=== PATIENT | male | born 1955 | race Caucasian/White ===

== ENCOUNTER 2018-03-05 10:07 | Outpatient (CLI) | payer MEDICARE ==
[~2018-03-05] VITALS: Ht 175.3 cm; Wt 104.8 kg
[2018-03-05 10:14] VITALS: BP 150/70
[2018-03-05 10:54] LABS: BASOPHILS % (AUTO) 0 % (0-10); EOSINOPHILS # (AUTO) 0.1 10^3/uL (0.0-0.3); EOSINOPHILS % (AUTO) 1 % (0-10); HEMATOCRIT 45 % (40-54); HEMOGLOBIN 15.2 G/DL (13.3-17.7); LYMPHOCYTES % (AUTO) 34 % (12-44); MEAN CORPUSCULAR HEMOGLOBIN 30 PG (25-34); MEAN CORPUSCULAR HGB CONC 34 G/DL (32-36); MEAN CORPUSCULAR VOLUME 88 FL (80-99); MEAN PLATELET VOLUME 11.1 FL (7.4-10.4); MONOCYTES # (AUTO) 0.9 X 10^3 (0.0-1.0); MONOCYTES % (AUTO) 8 % (0-12); NEUTROPHILS # (AUTO) 6.8 X 10^3 (1.8-7.8); NEUTROPHILS % (AUTO) 57 % (42-75); PLATELET COUNT 217 10^3/uL (130-400); RED BLOOD COUNT 5.07 10^6/uL (4.35-5.85); RED CELL DISTRIBUTION WIDTH 14.8 % (10.0-14.5); WHITE BLOOD COUNT 11.8 10^3/uL (4.3-11.0)
[2018-03-05 10:58] LABS: BILIRUBIN,URINE NEGATIVE (NEGATIVE); CLARITY,URINE CLEAR; COLOR,URINE YELLOW; GLUCOSE, URINE (UA) NEGATIVE (NEGATIVE); KETONES,URINE NEGATIVE (NEGATIVE); LEUKOCYTE ESTERASE ,URINE NEGATIVE (NEGATIVE); NITRITE,URINE NEGATIVE (NEGATIVE); PH,URINE 5 (5-9); PROTEIN,URINE NEGATIVE (NEGATIVE); UROBILINOGEN,URINE NORMAL (NORMAL)
[2018-03-05 11:13] LABS: BACTERIA,URINE NEGATIVE /HPF; SQUAMOUS EPITHELIAL CELL,UR RARE /HPF
[2018-03-05 11:20] LABS: BUN/CREATININE RATIO 14; CALCIUM 9.1 MG/DL (8.5-10.1); CARBON DIOXIDE 25 MMOL/L (21-32); CHLORIDE 108 MMOL/L (98-107); CREATININE SERUM 0.97 MG/DL (0.60-1.30); GFR ESTIMATED > 60; GLUCOSE 86 MG/DL (70-105); POTASSIUM 3.9 MMOL/L (3.6-5.0); SODIUM 140 MMOL/L (135-145)
[2018-03-05] MEDS ORDERED: TRAM50TA2 PO (11:20)
[2018-03-05] MEDS ORDERED: MONT10TA21 PO (11:20)
[2018-03-05] MEDS ORDERED: METO-352 PO (11:20)
[2018-03-05] MEDS ORDERED: PRAV20TA3 PO (11:20)
[2018-03-05] MEDS ORDERED: BACL20TA PO (11:20)
[2018-03-05] MEDS ORDERED: VENL75CA PO (11:20)
[2018-03-05] MEDS ORDERED: PANT40TA3 PO (11:20)
[2018-03-05 11:24] LABS: PROTHROMBIN TIME PATIENT 13.5 SEC (12.2-14.7)
--- NOTE | 2018-03-05 11:39 | Diagnostic Imaging Report ---
PATIENT HISTORY: Preoperative evaluation of cardiac and pulmonary structures prior to administration of anesthesia. Right total knee arthroplasty. TECHNIQUE: Two views of the chest. COMPARISON: None. FINDINGS: Lung volumes are normal. There is mild opacity at the left midlung, may represent atelectasis or prominent epicardial fat pad. No pleural effusion or pneumothorax is seen. The cardiac silhouette is normal in size. No acute osseous abnormality seen. IMPRESSION: No definite acute pulmonary abnormality is seen. Opacity at the left midlung is thought to represent atelectasis or prominent epicardial fat pad. Dictated by: Dictated on workstation # [id number]
== END 2018-03-05 11:00 | disposition home or self-care (01) ==
LOC: PREOP 10:07
PROVIDERS: ATTEND Orthopaedic Surgery
DX: Z01.810 Encounter for preprocedural cardiovascular examination (principal); Z01.811 Encounter for preprocedural respiratory examination; Z01.812 Encounter for preprocedural laboratory examination; Z11.2 Encounter for screening for other bacterial diseases; M17.0 Bilateral primary osteoarthritis of knee; I10 Essential (primary) hypertension; R53.83 Other fatigue
CPT/HCPCS: 36415; 71046; 80048; 81000; 85025; 85610; 86850; 86900; 86901; 87081; 93005

== ENCOUNTER 2018-03-18 06:00 | Inpatient (IN) | payer MEDICARE ==
[~2018-03-18] VITALS: Ht 175.3 cm; Wt 104.8 kg
[~2018-03-18 06:00] MED LIST: BACL20TA PO; METO-352 PO; MONT10TA21 PO; PANT40TA3 PO; PRAV20TA3 PO; TRAM50TA2 PO; VENL75CA PO
[2018-03-18] MEDS ORDERED: ONDANSETRON 4 MG/2 ML (SDV) Z0FRAN IVP ONE (06:30)
[2018-03-18] MEDS ORDERED: CELECOXIB 100 MG (CeleBREX) CAP PO ONE (06:30)
[2018-03-18] MEDS ORDERED: ceFAZolin 2 GM IV Premixed 50 ML IV ONE (06:30)
[2018-03-18] MEDS ORDERED: DEXAMETHASONE 4 MG/ML SDV (DECADRON) IV ONE (06:30)
[2018-03-18] MEDS ORDERED: GABAPENTIN 600 MG (NEURONTIN) TAB PO ONE (06:30)
[2018-03-18] MEDS ORDERED: fentaNYL INJECTION 100 MCG/2 ML AMP ONE (06:38)
[2018-03-18] MEDS ORDERED: MIDAZOLAM 2 MG/2 ML (VERSED) VIAL ONE ×2 (06:38→06:52)
[2018-03-18] MEDS ORDERED: GENTAMICIN 40 MG/ML 2 ML INJ SDV ONE (06:42)
[2018-03-18] MEDS ORDERED: NS IV 500 ML 500 ML IV PRN (06:56)
--- NOTE | 2018-03-18 07:52 | Progress Note-Pre Operative ---
Pre-Operative Progress Note H&P Reviewed The H&P was reviewed, patient examined and no changes noted. Date Seen by Provider: March 18, 2018 Time Seen by Provider: 07:45 Date H&P Reviewed: March 18, 2018 Time H&P Reviewed: 07:45 Pre-Operative Diagnosis: Primary Osteoarthritis Right Knee ZACHARY ORTIZ DO March 18, 2018 7:52 am
[2018-03-18] MEDS: LACTATED RINGERS 1,000 ML IV PRN ×2 (07:57→08:21)
[2018-03-18] MEDS ORDERED: KETOROLAC 30 MG/ML VIAL IVP PRN (08:00)
[2018-03-18] MEDS ORDERED: PROMETHAZINE INJ 25 MG/ML (PHENERGAN) AMP IVP PRN (08:00)
[2018-03-18] MEDS ORDERED: BACLOFEN 10 MG (LIORESAL) TAB PO PRN ×2 (08:00→13:00)
[2018-03-18] MEDS ORDERED: BISACODYL 10 MG SUPP (DULCOLAX) PR PRN (08:00)
[2018-03-18] MEDS ORDERED: morphine INJ 10 MG/ML 1ML (SYR OR VIAL) IVP PRN (08:00)
[2018-03-18] MEDS ORDERED: ONDANSETRON 4 MG/2 ML (SDV) Z0FRAN IVP PRN ×2 (08:00→10:15)
[2018-03-18] MEDS ORDERED: diphenhydrAMINE 50 MG/ML INJ (BENADRYL) IV PRN (08:00)
[2018-03-18 08:20] VITALS: BP 135/72
[2018-03-18] MEDS ORDERED: LIDOCAINE PF 2% 5 ML (XYLOCAINE) VIAL ONE (08:23)
[2018-03-18] MEDS ORDERED: ROPIVACAINE 5MG/ML 30ML VIAL ONE (08:23)
[2018-03-18] MEDS ORDERED: proPOfol 200 MG/20 ML (DIPRIVAN) VIAL IV ONE (08:23)
[2018-03-18] MEDS ORDERED: ONDANSETRON 4 MG/2 ML (SDV) Z0FRAN ONE (08:23)
[2018-03-18] MEDS ORDERED: DEXAMETHASONE 10 MG/ML (DECADRON) 1 ML VIAL ONE (08:23)
[2018-03-18] MEDS ORDERED: SEVOFLURANE (ULTANE) 15 ML INHAL SOLN ONE (08:23)
[2018-03-18] MEDS ORDERED: NEOSTIGMINE 1 MG/ML 5 ML SYRINGE ONE (08:23)
[2018-03-18] MEDS ORDERED: ROCURONIUM 10 MG/ML 5 ML SYRINGE IV ONE (08:24)
[2018-03-18] MEDS ORDERED: GLYCOPYRROLATE 0.2 MG/ML (ROBINUL) 2 ML VIAL ONE (08:25)
[2018-03-18] MEDS ORDERED: TRANEXAMIC ACID 100 MG/ML 10 ML INJECTION IV ONE (08:26)
[2018-03-18] MEDS ORDERED: NEO/POLY/BAC (NEOSPORIN) OINT 15 GM TUBE ONE (08:44)
[2018-03-18] MEDS: ASPIRIN E.C. 325 MG (ECOTRIN) TABLET PO SCH (09:00)
[2018-03-18] MEDS: BISACODYL 5 MG (DULCOLAX) TABLET PO SCH (09:00)
[2018-03-18] MEDS ORDERED: INTRA-ARTICULAR IU ONE ×4 (09:00)
--- NOTE | 2018-03-18 09:56 | Progress Note-Post Operative ---
Post-Operative Progess Note Surgeon (s)/Nuclear Operations Specialist (s) Surgeon ZACHARY ORTIZ DO Nuclear Operations Specialist: Trevor Duckworth OYSTER PREPARERTonya Pre-Operative Diagnosis Primary Osteoarthritis Right Knee Post-Operative Diagnosis same Procedure & Operative Findings Date of Procedure 03/18/18 Procedure Performed/Findings Right Total Knee Arthroplasty Anesthesia Type General with femoral and Ipacs nerve block Estimated Blood Loss Estimated blood loss (mL): 100 ml Specimens/Packing Specimens Removed arthritic bone and meniscal tissue ZACHARY ORTIZ DO March 18, 2018 9:56 am
[2018-03-18] MEDS ORDERED: HYDROmorphone 1 MG/ML (DILAUDID) 1 ML SYRINGE IV PRN (10:15)
[2018-03-18] MEDS ORDERED: morphine INJ 10 MG/ML 1ML (SYR OR VIAL) ONE (10:30)
[2018-03-18] MEDS: morphine INJ 10 MG/ML 1ML (SYR OR VIAL) IVP PRN ×2 (10:35→10:40)
--- NOTE | 2018-03-18 11:02 | Diagnostic Imaging Report ---
INDICATION: Postop right knee arthroplasty COMPARISON: None. FINDINGS: 2 views of the right knee demonstrate well-suited arthroplasty without fracture or dislocation. Skin clips are present. There is no unexpected postoperative foreign body. IMPRESSION: Well-seated right knee arthroplasty. Dictated by: Dictated on workstation # [id number]
[2018-03-18] MEDS: D5 1/2 NS 1000 ML IV SOLUTION 1,000 ML IV SCH (11:35)
[2018-03-18 12:00] VITALS: BP 129/66
[2018-03-18] MEDS ORDERED: ceFAZolin 2 GM IV Premixed 50 ML IV SCH (13:00)
[2018-03-18] MEDS ORDERED: PRAV40TA2 PO (14:32)
[2018-03-18 15:50] VITALS: BP 121/66
[2018-03-18] MEDS: ceFAZolin 2 GM IV Premixed 50 ML IV SCH (15:54)
[2018-03-18] MEDS: NICOTINE 21 MG (NICODERM) PATCH TD SCH (16:19)
[2018-03-18] MEDS: HYDROcodone/APAP 10 MG/325 MG (LORTAB) TAB PO PRN (17:05)
[2018-03-18 20:00] VITALS: BP 126/62
[2018-03-18] MEDS ORDERED: meTOprolol TARTRATE 50 MG (LOPRESSOR) TAB ONE (20:33)
[2018-03-18] MEDS ORDERED: meTOproloL SUCCINATE 50 MG (TOPROL XL) TAB PO ONE (21:17)
[2018-03-18] MEDS: VENlafaxine XR 75 MG (EFFEXOR XR) CAP PO SCH (21:24)
[2018-03-18] MEDS: PANTOPRAZOLE 40 MG (PROTONIX) TAB PO SCH (21:24)
[2018-03-18] MEDS: MONTELUKAST 10 MG (SINGULAIR) TAB PO SCH (21:24)
[2018-03-19] VITALS: BP 102/56
[2018-03-19] MEDS: ceFAZolin 2 GM IV Premixed 50 ML IV SCH (00:26)
[2018-03-19] MEDS: D5 1/2 NS 1000 ML IV SOLUTION 1,000 ML IV SCH (00:26)
[2018-03-19 04:00] VITALS: BP 130/87
[2018-03-19] MEDS: HYDROcodone/APAP 10 MG/325 MG (LORTAB) TAB PO PRN ×5 (04:13→23:51)
[2018-03-19 05:09] LABS: MEAN PLATELET VOLUME 11.3 FL (7.4-10.4); RED BLOOD COUNT 4.38 10^6/uL (4.35-5.85); RED CELL DISTRIBUTION WIDTH 14.6 % (10.0-14.5); WHITE BLOOD COUNT 17.7 10^3/uL (4.3-11.0)
[2018-03-19 05:32] LABS: BUN/CREATININE RATIO 13; CALCIUM 8.7 MG/DL (8.5-10.1); CARBON DIOXIDE 19 MMOL/L (21-32); CHLORIDE 106 MMOL/L (98-107); CREATININE SERUM 0.97 MG/DL (0.60-1.30); GFR ESTIMATED > 60; GLUCOSE 197 MG/DL (70-105); SODIUM 138 MMOL/L (135-145)
--- NOTE | 2018-03-19 07:11 | OPERATIVE REPORT ---
DATE OF SERVICE: 03/18/2018 PREOPERATIVE DIAGNOSIS: Primary osteoarthritis, right knee with varus deformity. POSTOPERATIVE DIAGNOSIS: Primary osteoarthritis, right knee with varus deformity. PROCEDURE: Right total knee arthroplasty. SURGEON: Zachary Ortiz DO LEARNING DISABILITIES SPECIALIST: CHET Huertas SURGICAL OFFICE SERVICES CLERK DUTIES: Trevor Duckworth, surgical technician was utilized throughout the entire procedure for retraction, placement of metallic implants, wound closure, dressing application and patient transfer. ANESTHESIA: General with femoral and IPACK nerve block. COMPLICATIONS: None. ESTIMATED BLOOD LOSS: 100 mL. INDICATIONS AND FINDINGS: The patient is a 63-year-old male seen with chief complaint of progressive right knee pain, nonresponsive to conservative treatment. X-rays revealed a significant varus deformity of both the knee with tibial varum deformity as well. The patient was taken to surgery where a total knee arthroplasty was performed on the right without complication utilizing the [employer]omet Cohera Medicalguard total knee system with a press fit 67.5 mm femoral component, a cemented 75 mm fixed I-beam tibial plate. A 10 mm anterior stabilized tibial bearing implant along with a 34 mm 3-pronged all-polyethylene cemented with thin patella. Palacos bone cement was utilized as well. PROCEDURE IN DETAIL: The patient was seen by anesthesia and under ultrasound guidance, a femoral and IPACK nerve block was performed on the right to decrease postop pain and decrease amount of medication required during the surgical procedure. The patient was transferred to the operating room where general inhalation anesthetic was administered. A well-padded pneumatic tourniquet was placed about the upper aspect of the right thigh. A ChloraPrep and sterile drape of the right lower extremity was performed. The right leg was elevated, exsanguinated and the tourniquet was inflated to 300 mmHg pressure. An anterior longitudinal midline incision was made over the anterior surface of the right knee. The incision was deepened through the medial parapatellar incision. The patella was subluxed laterally. Osteophytes from the medial femoral condyle and medial tibial plateau were removed. Subperiosteal dissection was performed over the proximal medial tibia. A pilot control operator hole was then drilled in the distal femur utilizing a 5-degree cutting guide. A distal femoral cutting guide was assembled and a distal femoral osteotomy was completed. The distal femur was sized to a 67.5 mm femoral component. A 4-way cutting block was assembled. Anterior, posterior and chamfer cuts of the distal femur made. Remnants were excised. The tibia was subluxed anteriorly. A pilot control operator hole was then drilled in the proximal tibia. An intramedullary derek was inserted measuring off the exposed bone over the proximal medial tibia. A proximal tibial cutting guide was assembled and a proximal tibial osteotomy was completed. The knee was taken into full extension with a 10 mm spacer with full extension obtained. The patient had a 12-degree flexion contracture prior to the surgery and this contracture was corrected. The posterior aspect of the toe was resected through a cutting guide and drill through the drill guide. Provisional components were inserted. The knee was cycled through a range of motion. Rotation of the tibial component was noted and marked on the proximal tibia. The bony surfaces were irrigated extensively with normal saline solution. The proximal tibia was then broached to accept the I-beam stem of the tibial component. Palacos bone cement was then mixed. This was pressurized into the proximal tibia and the tibial component was cemented in place. The femoral component was press fit into place. The provisional tibial bearing implant was inserted and the knee was taken to full extension. The patellar component was cemented in place and held with a clamp. Excess cement was removed. The cement was allowed to set. The provisional tibial bearing implant was removed and placed with a 10 mm anterior stabilized tibial bearing implant and was locked anteriorly with a locking bar. The knee was cycled through a range of motion. No instability was noted in full flexion and midrange flexion. Full extension was obtained. This patella tracked centrally. The tourniquet was released. Hemostasis was obtained with electrocautery. The knee was placed in 90 degrees of flexion. The medial retinaculum was closed with multiple interrupted [id number] sutures of #1 Vicryl, reinforced with a running suture of #1 Stratafix. The subcutaneous tissues were closed with 0 and 2-0 Vicryl suture. The skin was closed with stainless steel moustapha. An Adaptic, Neosporin, bulky dressing was placed about the right knee. The patient was awakened and transported to postop recovery with anesthesia personnel present in satisfactory condition. Job ID: [id number] DocumentID: [id number] Dictated Date: 03/18/2018 23:28:04 Material Handling Crew Supervisor Date: 03/19/2018 07:10:40 Dictated By: ZACHARY ORTIZ DO
[2018-03-19 08:00] VITALS: BP 128/59
--- NOTE | 2018-03-19 09:00 | Occupational Therapy Eval ---
OT Evaluation-General/PLF Medical Diagnosis Admission Date March 18, 2018 at 06:00 Medical Diagnosis: OA R knee, R TKA Onset Date: March 18, 2018 Therapy Diagnosis Therapy Diagnosis: decr self care Height/Weight Height (Feet): 5 Height (Inches): 9.00 Weight (Pounds): 231 Weight (Ounces): 0.0 Precautions Precautions/Isolations: Fall Prevention, Standard Precautions Safety Interventions: None Weight Bear Status Weight Bearing Restriction: Weight Bearing/Tolerated Location Restriction: R LE WBS (Ord/Comment): with walker Referral Physician: Donita Referral Reason: Evaluation/Treatment Medical History Pertinent Medical History: Arthritis, HTN, Neuropathy (bilat hands), Smoking Additional Medical History 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 Emphysema. Depression. Headaches/ migraines. 2 R knee scopes Current History Elective R total knee Reviewed History: Yes Social History Current Living Status: Spouse ADL-Prior Level of Function ADL PLOF Comments Pt reported that he has been able to manage his basic ADLs and home care, with modifications. He has modified equipment in bathroom and knows modified techniques for dressing. 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 DME/Equipment: Bath Chair, Grab Bars, Shower, Tall Toilet DME/Equipment Comments Discussed advantages of hand held shower with pt Occupation: retired Drive Self: Yes OT Current Status Subjective Pt seen in room, up in recliner, agreeable to OT. Pt rated knee pain 3/10 Appearance Alert, cooperative Mental Status/Objective Patient Orientation: Person, Place, Time, Situation Attachments: IV Current Glasses/Contacts: Yes Dentures/Partials: Yes Hand Dominance: Right (pt reports he is ambidextrous) Upper Extremity ROM Grossly WFL bilat Upper Extremity Sensation Pt reported neuropathy in both hands, all fingers, from old cervical fractures Upper Extremity Strength 5/5 bilat ADL-Treatment ADL-Current Pt reported that he has already been up with nursing. He has all the necessary equipment for his bathroom at home and described using modified techniques for ADLs. He has gotten in his shower at home after knee scopes and is familiar with modified technique for transfer. Shower has built-in seat. OT shared technique for donning ERIC hose, with verbal understanding. Functional [place] Measure 0=Not Assessed/NA 4=Minimal Assistance 1=Total Assistance 5=Supervision or Setup 2=Maximal Assistance 6=Modified [place] 3=Moderate Assistance 7=Complete IndependenceIRFPAI Quality Coding Scale 6 Independent with activity with or without an assistive device 5 Patient requires set up or clean up by helper. Patient completes activity by themselves 4 Supervision or touching assist (CGA). [place] provide cues , steadying assist 3 The helper provides less than half the effort to complete the activity 2 The helper provides more than half the effort to complete the activity 1 Dependent. The helper does all the effort to complete an activity 7 Patient refused to complete or attempt activity 9 The patient did not perform the activity before the current illness or injury 88 Not attempted due to Medical conditions or safety concerns Education OT Patient Education: Modified ADL techniques, Purpose of tx/functional activities, Rehab process, Transfer techniques, Use of adapted equipment Teaching Recipient: Patient Teaching Methods: Discussion Response to Teaching: Verbalize Understanding OT Education/Plan Problem List/Assessment Assessment: No Skilled OT Needs ID'd Pt has all necessary bathroom adaptations and is knowledgeable about modified ADL techniques. He will have help at home to put on ERIC hose. No skilled OT needs identified Discharge Recommendations Plan/Recommendations: Discontinue OT Treatment Plan/Plan of Care Treatment,Training & Education: No Patient would benefit from OT for education, treatment and training to promote independence in ADL's, mobility, safety and/or upper extremity function for ADL' s. Treatment Duration: March 19, 2018 Frequency: 1 time per week Estimated Hrs Per Day: Other Agreement: Yes Rehab Potential: Good Time/GCodes Start Time: 08:37 Stop Time: 09:37 Total Time Billed (hr/min): 10 Billed Treatment Time visit, 10 minutes evaluation low intensity MELBA HANSON OT March 19, 2018 09:00
[2018-03-19] MEDS: SENNA W/DOCUSATE (SENOKOT S) TABLET PO SCH ×2 (09:02→20:36)
[2018-03-19] MEDS: BISACODYL 5 MG (DULCOLAX) TABLET PO SCH (09:02)
[2018-03-19] MEDS: NICOTINE 21 MG (NICODERM) PATCH TD SCH (09:03)
[2018-03-19] MEDS: ENOXAPARIN 40 MG/0.4 ML (LOVENOX) SYR SC SCH (09:03)
[2018-03-19] MEDS: NICOTINE PATCH REMOVAL TP SCH (09:03)
[2018-03-19] MEDS: ASPIRIN E.C. 325 MG (ECOTRIN) TABLET PO SCH (09:03)
--- NOTE | 2018-03-19 10:43 | Physical Therapy Evaluation ---
PT Evaluation-General Medical Diagnosis Admission Date March 18, 2018 at 06:00 Medical Diagnosis: OA R knee, R TKA Onset Date: March 18, 2018 Therapy Diagnosis Therapy Diagnosis: impaired mobility, endurance, strength, ROM Height/Weight Height (Feet): 5 Height (Inches): 9.00 Weight (Pounds): 231 Weight (Ounces): 0.0 Precautions Precautions/Isolations: Fall Prevention, Standard Precautions Weight Bear Status Right Lower Extremity: Right Full Weight Bearing Left Lower Extremity: Left Full Weight Bearing Referral Physician: Donita Reason for Referral: Evaluation/Treatment Medical History Pertinent Medical History: Arthritis, HTN, Neuropathy (bilat hands), Smoking Reviewed History: Yes Social History Current Living Status: Spouse Entry Into Home: Stairs With Railing PT Steps Into Home: 5 Prior/Core FIM Prior Level of Function Functional [place] Measure 0=Not Assessed/NA 4=Minimal Assistance 1=Total Assistance 5=Supervision or Setup 2=Maximal Assistance 6=Modified [place] 3=Moderate Assistance 7=Complete [place] Bed Mobility: 7 Transfers (B,C,W/C) (FIM): 7 Gait: 7 PT Evaluation-Current Subjective Patient in recliner pre tx, agrees to PT, has pain of 3/10. Pt/Family Goals to be independent at home Objective Patient Orientation: Normal For Age ROM/Strength ROM Lower Extremities right knee flexion 90 degrees, extension +2 degrees Strength Lower Extremities NT Integumentary/Posture Bowel Incontinence: No Bladder Incontinence: No Neuromuscular (Tone, Coordination, Reflexes) NT Sensory Vision: Functional Hearing: Functional Hand Dominance: Right (pt reports he is ambidextrous) Sensation Right Lower Extremit: Intact Sensation Left Lower Extremity: Intact Transfers Functional [place] Measure 0=Not Assessed/NA 4=Minimal Assistance 1=Total Assistance 5=Supervision or Setup 2=Maximal Assistance 6=Modified [place] 3=Moderate Assistance 7=Complete [place] Transfers (B, C, W/C) (FIM): 5 Scootin Rollin Supine to/from Sit: 5 Sit to/from Stand: 5 bed t/f WC(FIM only if WC use): 5 Gait Mode of Locomotion: Walk Anticipated Mode of Locomotion: Walk Gait (FIM): 5 Distance: 200' Gait Level of Assist: 5 Gait Persons Needed: 1 Gait Assistive Device: FWW Comments/Gait Description Patient ambulates briskly, steady, no limp, good advancement and clearing. Balance Sitting Static: Normal Sitting Dynamic: Normal Standing Static: Good Standing Dynamic: Good Treatment right TKA protocol x10 (AP, QS, HS, SAQ, SLR) Assessment/Needs Patient has impaired mobility, strength, endurance, ROM post right TKA. Rehab Potential: Good PT Short Term Goals Short Term Goals Time Frame: March 26, 2018 Transfers (B,C,W/C) (FIM): 6 Gait (FIM): 6 Gait Distance Comment: 300' Gait Assistive Device: FWW PT Plan Problem List Problem List: Activity Tolerance, Functional Strength, Safety, Balance, Gait, Transfer, ROM Treatment/Plan Treatment Plan: Continue Plan of Care Treatment Plan: Education, Functional Activity Deanna, Functional Strength, Gait , Safety, Therapeutic Exercise, Transfers Treatment Duration: March 26, 2018 Frequency: 11 times per week Estimated Hrs Per Day: .25 hour per day (15-30') Patient and/or Family Agrees t: Yes Safety Risks/Education Patient Education: Gait Training, Transfer Techniques, Reviewed Precautions, Reviewed Use of Ice, Correct Positioning, Disease Process, Safety Issues Teaching Recipient: Patient Teaching Methods: Demonstration, Discussion Response to Teaching: Reinforcement Needed Discharge Recommendations Plan Patient will perform bed mobility and transfer training, balance and endurance training, functional strengthening, stair training, gait training, and education , to improve functional mobility and independence at home. Therapy D/C Recommendations: Home w/ Family Support Time/GCodes Time In: 1010 Time Out: 1035 Total Billed Treatment Time: 25 Total Billed Treatment 1 visit EVL 15' GT 10' REGI YOUSSEF PT March 19, 2018 10:43
--- NOTE | 2018-03-19 11:51 | Progress Note (SOAP) ---
Subjective Date Seen by Provider: March 19, 2018 Time Seen by Provider: 11:47 Subjective/Events-last exam POD #1 s/p Right TKA, doing well at this time, no complaints, ambulating with physical therapy. Objective Exam Vital Signs Date Time Temp Pulse Resp B/P (MAP) Pulse Ox O2 Delivery O2 Flow Rate FiO2 03/19/18 08:00 97.7 70 18 128/59 (82) 97 Room Air 03/19/18 04:00 99.8 75 18 130/87 (101) 97 Room Air 03/19/18 00:00 98.4 62 19 102/56 (71) 93 Room Air 03/18/18 20:00 98.7 71 17 126/62 (83) 93 Room Air 03/18/18 15:50 97.1 82 18 121/66 (84) 93 Room Air 03/18/18 12:00 97.0 82 16 129/66 (87) 95 Room Air I & O 03/19/18 07:00 Intake Total 3450 ml Output Total 1700 ml Balance 1750 ml Capillary Refill : General Appearance: No Apparent Distress HEENT: PERRL/EOMI Extremity: Non Tender (dressing CDI right knee) Neurologic/Psychiatric: Alert, Oriented x3 Skin: Normal Color, Warm/Dry Results Lab Laboratory Tests 03/19/18 04:30: White Blood Count 17.7H, Red Blood Count 4.38, Hemoglobin 13.0L, Hematocrit 39L , Mean Corpuscular Volume 89, Mean Corpuscular Hemoglobin 30, Mean Corpuscular Hemoglobin Concent 33, Red Cell Distribution Width 14.6H, Platelet Count 219, Mean Platelet Volume 11.3H, Sodium Level 138, Potassium Level 4.0, Chloride Level 106, Carbon Dioxide Level 19L, Anion Gap 13, Blood Urea Nitrogen 13, Creatinine 0.97, Estimat Glomerular Filtration Rate > 60, BUN/Creatinine Ratio 13, Glucose Level 197H, Calcium Level 8.7 Assessment/Plan Assessment/Plan Assess & Plan/Chief Complaint A: s/p right TKA P: continue current treatment plan to DC to home tomorrow with home healthcare physical therapy 5x/week x 2 weeks. Clinical Quality Measures DVT/VTE Risk/Contraindication: Risk Factor Score Per Nursin RFS Level Per Nursing on Admit: 4+=Very High ELICIA MELGAR VET ASSISTANT March 19, 2018 11:51 am
[2018-03-19 12:00] VITALS: BP 124/60
--- NOTE | 2018-03-19 13:53 | Anesthesia-General Post-Op ---
General Patient Condition Mental Status/LOC: Same as Preop Cardiovascular: Satisfactory Nausea/Vomiting: Absent Respiratory: Satisfactory Pain: Controlled Complications: Absent Post Op Complications Complications None Follow Up Care/Instructions Patient Instructions None needed. Anesthesia/Patient Condition Patient Condition Patient is doing well, no complaints, stable vital signs, no apparent adverse anesthesia problems. Ambulating well today. Pain slightly worse today than yesterday, but overall doing well. Will be available if needed. HEDY NEVAREZ DO March 19, 2018 13:53
--- NOTE | 2018-03-19 15:09 | Physical Therapy Daily Note ---
PT Daily Note-Current Subjective Patient in bed pre tx, agrees to PT, has pain of 3/10. Appearance Patient BTB post tx with nurse call, phone, tray, all needs met. Polar care on , patient does not want to put on the CPM at this time because he wants to take a nap. Mental Status Patient Orientation: Normal For Age Transfers Functional [place] Measure 0=Not Assessed/NA 4=Minimal Assistance 1=Total Assistance 5=Supervision or Setup 2=Maximal Assistance 6=Modified [place] 3=Moderate Assistance 7=Complete IndependenceIRFPAI Quality Coding Scale 6 Independent with activity with or without an assistive device 5 Patient requires set up or clean up by helper. Patient completes activity by themselves 4 Supervision or touching assist (CGA). [place] provide cues , steadying assist 3 The helper provides less than half the effort to complete the activity 2 The helper provides more than half the effort to complete the activity 1 Dependent. The helper does all the effort to complete an activity 7 Patient refused to complete or attempt activity 9 The patient did not perform the activity before the current illness or injury 88 Not attempted due to Medical conditions or safety concerns Transfers (B, C, W/C) (FIM): 5 Scootin Rollin Supine to/from Sit: 6 Sit to/from Stand: 5 Bed to/from Chair: 5 Weight Bearing Right Lower Extremity: Right Full Weight Bearing Left Lower Extremity: Left Full Weight Bearing Gait Training Gait (FIM): 5 Distance: 300' Gait Level of Assist: 5 Gait Persons Needed: 1 Gait Assistive Device: FWW Good ambulation, brisk speed, good step through and foot clearance. Exercises Supine Ex: Ankle pumps, Quad Set, Heel Slides, Short Arc Quads, Straight leg raise Supine Reps: 10 Treatments bed mobility and transfers, ambulation, functional strengthening, ROM Assessment Current Status: Fair Progress improving ambulation PT Short Term Goals Short Term Goals Time Frame: March 26, 2018 Transfers (B,C,W/C) (FIM): 6 Gait (FIM): 6 Gait Distance Comment: 300' Gait Assistive Device: FWW PT Plan Problem List Problem List: Activity Tolerance, Functional Strength, Safety, Balance, Gait, Transfer, ROM Treatment/Plan Treatment Plan: Continue Plan of Care Treatment Plan: Education, Functional Activity Deanna, Functional Strength, Gait , Safety, Therapeutic Exercise, Transfers Treatment Duration: March 26, 2018 Frequency: 11 times per week Estimated Hrs Per Day: .25 hour per day (15-30') Patient and/or Family Agrees t: Yes Safety Risks/Education Patient Education: Gait Training, Transfer Techniques, Correct Positioning, Safety Issues Teaching Recipient: Patient Teaching Methods: Demonstration, Discussion Response to Teaching: Reinforcement Needed Time/GCodes Time In: 1445 Time Out: 1500 Total Billed Treatment Time: 15 Total Billed Treatment 1 visit GT 15' REGI YOUSSEF PT March 19, 2018 15:09
[2018-03-19 17:08] VITALS: BP 157/73
[2018-03-19 20:00] VITALS: BP 150/70
[2018-03-19] MEDS ORDERED: meTOproloL SUCCINATE 50 MG (TOPROL XL) TAB PO ONE (20:02)
[2018-03-19] MEDS: PANTOPRAZOLE 40 MG (PROTONIX) TAB PO SCH (20:36)
[2018-03-19] MEDS: MONTELUKAST 10 MG (SINGULAIR) TAB PO SCH (20:36)
[2018-03-19] MEDS: VENlafaxine XR 75 MG (EFFEXOR XR) CAP PO SCH (20:36)
[2018-03-20] VITALS: BP 162/79
[2018-03-20] MEDS: HYDROcodone/APAP 10 MG/325 MG (LORTAB) TAB PO PRN ×2 (04:49→09:33)
[2018-03-20 05:10] LABS: HEMOGLOBIN 12.6 G/DL (13.3-17.7); MEAN PLATELET VOLUME 11.1 FL (7.4-10.4); RED BLOOD COUNT 4.26 10^6/uL (4.35-5.85); RED CELL DISTRIBUTION WIDTH 14.7 % (10.0-14.5); WHITE BLOOD COUNT 11.4 10^3/uL (4.3-11.0)
[2018-03-20 05:30] LABS: BUN/CREATININE RATIO 16; CALCIUM 8.5 MG/DL (8.5-10.1); CARBON DIOXIDE 24 MMOL/L (21-32); CHLORIDE 107 MMOL/L (98-107); CREATININE SERUM 0.83 MG/DL (0.60-1.30); GFR ESTIMATED > 60; GLUCOSE 98 MG/DL (70-105); POTASSIUM 3.9 MMOL/L (3.6-5.0); SODIUM 142 MMOL/L (135-145)
[2018-03-20] MEDS ORDERED: ASPI325T32 PO (06:32)
[2018-03-20] MEDS ORDERED: HYDR-3820 PO (06:32)
[2018-03-20] MEDS ORDERED: SENN-20 PO (06:32)
--- NOTE | 2018-03-20 06:38 | D/C HH Face to Face Order ---
D/C Face to Face Orders Instructions for Patient Patient Instructions/FollowUp: f/u in 2 1/2 weeks [place] office Please see Dr. Carty's total knee discharge instructions Physician to follow Patient: Machelle Discharge Diet for Home: No Restrictions Patient Problems: s/p Right TKA Severe primary OA right knee Goals for Patient: increase strength increase ADLs increase knee ROM Patient Data-Allergies,Ht & Wt Patient Allergies: Coded Allergies: No Known Drug Allergies (Unverified , 03/05/18) Height (Feet): 5 Height (Inches): 9.00 Weight (Pounds): 231 Weight (Ounces): 0.0 Home Health Need/Face to Face Date of Face to Face: March 20, 2018 Clinical Findings: Muscle weakness, Pain with ambulation, Unsteady gait I have seen Pt [id number]: Yes Discharged To: Home Diagnosis/Conditions: s/p Right TKA Severe primary OA right knee Patient is Homebound due to: Davi fall risk due to instabilty, Pain w/ ambulation Homebound Status Due to the above stated illness, injury or surgical procedure (medical condition or diagnosis) and associated clinical findings, the patient is homebound because of his/her inability to leave home except with aid of a supportive device and/or person AND leaving the home requires a considerable and taxing effort or is medically contraindicated. Pt req the following assistanc: Walker Home Health Nursing Orders Home Health Services Order: Nursing Services, Physical Therapy-Evaluate & Treat physical therapy 5x/week x 2 weeks to assist with ambulation and treat ROM nursing to remove moustapha and apply steri strips on 03/27/2018 Home Health Infusion Therapy Line Start Date: March 18, 2018 Line Start Time: 744 Line Type: Saline Lock Site Location: Antecubital Therapy Orders Therapy Orders: Physical Therapy Therapy Specific Orders: Gait training, Increase strength/endurance, Restore ROM Certify Stmt I certify that this patient is under my care and that I, a nurse practitioner or a physician; a tax assistant working with me, had a face to face encounter that - meets the physician face to face encounter requirements with this patient as dated. ELICIA MELGAR APRN March 20, 2018 6:38 am
--- NOTE | 2018-03-20 06:47 | Progress Note (SOAP) ---
Subjective Date Seen by Provider: March 20, 2018 Time Seen by Provider: 06:45 Subjective/Events-last exam No complaints, overall he is doing well and states he feels ready for discharge , pain controlled, ambulated 400ft yesterday Objective Exam Vital Signs Date Time Temp Pulse Resp B/P (MAP) Pulse Ox O2 Delivery O2 Flow Rate FiO2 03/20/18 00:00 97.4 73 18 162/79 (106) 93 Room Air 03/19/18 20:00 98.8 70 16 150/70 (96) 97 Room Air 03/19/18 17:08 98.4 68 18 157/73 (101) 97 Room Air 03/19/18 12:00 98.1 69 18 124/60 (81) 96 Room Air 03/19/18 08:00 97.7 70 18 128/59 (82) 97 Room Air I & O 03/20/18 07:00 Intake Total 2980 ml Output Total 700 ml Balance 2280 ml Capillary Refill : General Appearance: No Apparent Distress Respiratory: No Accessory Muscle Use, No Respiratory Distress Cardiovascular: Regular Rate, Rhythm, Normal Peripheral Pulses Gastrointestinal: non tender, soft Extremity: Normal Capillary Refill, Normal Inspection, No Calf Tenderness, No Pedal Edema Neurologic/Psychiatric: Alert, Oriented x3, No Motor/Sensory Deficits, Normal Mood/Affect Skin: Normal Color, Warm/Dry (dressing to right knee CDI, hudson hose noted, polar care unit in place) Results Lab Laboratory Tests 03/20/18 04:49: White Blood Count 11.4H, Red Blood Count 4.26L, Hemoglobin 12.6L, Hematocrit 39L , Mean Corpuscular Volume 90, Mean Corpuscular Hemoglobin 30, Mean Corpuscular Hemoglobin Concent 33, Red Cell Distribution Width 14.7H, Platelet Count 201, Mean Platelet Volume 11.1H, Sodium Level 142, Potassium Level 3.9, Chloride Level 107, Carbon Dioxide Level 24, Anion Gap 11, Blood Urea Nitrogen 13, Creatinine 0.83, Estimat Glomerular Filtration Rate > 60, BUN/Creatinine Ratio 16, Glucose Level 98, Calcium Level 8.5 Assessment/Plan Assessment/Plan Assess & Plan/Chief Complaint A: s/p right TKA P: DC to home today with home healthcare physical therapy 5x/week x 2 weeks. Clinical Quality Measures DVT/VTE Risk/Contraindication: Risk Factor Score Per Nursin RFS Level Per Nursing on Admit: 4+=Very High ELICIA MELGAR APRN March 20, 2018 06:47
--- NOTE | 2018-03-20 06:52 | Discharge Summary ---
Diagnosis/Chief Complaint Date of Admission March 18, 2018 at 06:00 Date of Discharge Discharge Date: March 20, 2018 Discharge Time: 1100 Admission Diagnosis Admission Diagnosis Primary OA right knee Discharge Diagnosis Primary OA right knee s/p right total knee arthroplasty Discharge Summary Procedures: Right Total Knee Arthroplasty Consultations none Discharge Physical Examination Allergies: Coded Allergies: No Known Drug Allergies (Unverified , 03/05/18) Vitals & I&Os Vital Signs Date Time Temp Pulse Resp B/P (MAP) Pulse Ox O2 Delivery O2 Flow Rate FiO2 03/20/18 00:00 97.4 73 18 162/79 (106) 93 Room Air General Appearance: Alert, Oriented X3 HEENT: Atraumatic, PERRLA Respiratory: Clear to Auscultation Cardiovascular: Regular Rate Abdominal: Soft, No Tenderness Extremities: No Clubbing, No Cyanosis, Normal Pulses Skin: No Rashes, No Breakdown Neuro: Strength at 5/5 X4 Ext, Normal Tone, Sensation Intact Psych/Mental Status: Mental Status NL Hospital Course The patient was seen in the clinic setting and had failed conservative treatment for Primary OA of the right knee. On the date of admission he was taken to the OR where a RTKA was performed under a general anesthesia without complications. Postoperatively he was maintained on DVT prophylaxis as well as IV antibiotic prophylaxis. His postoperative course overall was uneventful and he progressed well. At discharge he was eating and drinking well, He ambulated 400ft with walker assistance. His pain was controlled with oral medication and he was afebrile. Pending Labs Laboratory Tests 03/20/18 04:49: White Blood Count 11.4, Red Blood Count 4.26, Hemoglobin 12.6, Hematocrit 39, Mean Corpuscular Volume 90, Mean Corpuscular Hemoglobin 30, Mean Corpuscular Hemoglobin Concent 33, Red Cell Distribution Width 14.7, Platelet Count 201, Mean Platelet Volume 11.1, Sodium Level 142, Potassium Level 3.9, Chloride Level 107, Carbon Dioxide Level 24, Anion Gap 11, Blood Urea Nitrogen 13, Creatinine 0.83, Estimat Glomerular Filtration Rate > 60, BUN/Creatinine Ratio 16, Glucose Level 98, Calcium Level 8.5 Other pending tests normal Post op TKA Discharge Condition at discharge Good Instructions to patient/family Please see electronic discharge instructions given to patient. Discharge Medications Reviewed and agree with Discharge Medication list on patient's Discharge Instruction sheet Clinical Quality Measures DVT/VTE Risk/Contraindication: Risk Factor Score Per Nursin RFS Level Per Nursing on Admit: 4+=Very High ELICIA MEGLAR FACIAL OPERATOR March 20, 2018 06:52
[2018-03-20 08:00] VITALS: BP 135/71
[2018-03-20] MEDS: BISACODYL 5 MG (DULCOLAX) TABLET PO SCH (08:11)
[2018-03-20] MEDS: NICOTINE PATCH REMOVAL TP SCH (08:11)
[2018-03-20] MEDS: SENNA W/DOCUSATE (SENOKOT S) TABLET PO SCH (08:11)
[2018-03-20] MEDS: ASPIRIN E.C. 325 MG (ECOTRIN) TABLET PO SCH (08:11)
[2018-03-20] MEDS: ENOXAPARIN 40 MG/0.4 ML (LOVENOX) SYR SC SCH (08:11)
[2018-03-20] MEDS: NICOTINE 21 MG (NICODERM) PATCH TD SCH (08:11)
--- NOTE | 2018-03-20 09:33 | Physical Therapy Daily Note ---
PT Daily Note-Current Subjective Patient is up ad kathy in room and will dismiss to home on this date. Pain Numeric Pain Scale: 7 Location: Right Location Body Site: Knee Pain Description: Acute Mental Status Patient Orientation: Normal For Age Transfers Functional [place] Measure 0=Not Assessed/NA 4=Minimal Assistance 1=Total Assistance 5=Supervision or Setup 2=Maximal Assistance 6=Modified [place] 3=Moderate Assistance 7=Complete IndependenceIRFPAI Quality Coding Scale 6 Independent with activity with or without an assistive device 5 Patient requires set up or clean up by helper. Patient completes activity by themselves 4 Supervision or touching assist (CGA). Motley provide cues , steadying assist 3 The helper provides less than half the effort to complete the activity 2 The helper provides more than half the effort to complete the activity 1 Dependent. The helper does all the effort to complete an activity 7 Patient refused to complete or attempt activity 9 The patient did not perform the activity before the current illness or injury 88 Not attempted due to Medical conditions or safety concerns Transfers (B, C, W/C) (FIM): 6 Scootin Rollin Supine to/from Sit: 6 Sit to/from Stand: 6 Weight Bearing Right Lower Extremity: Right Full Weight Bearing Left Lower Extremity: Left Full Weight Bearing Gait Training Gait (FIM): 6 Distance (FIM): 3=150 ft Distance: 250' x 2 Gait Level of Assist: 6 Gait Assistive Device: FWW steady, antalgic Stair Training Stair Training: Handrails/: 1 handrail, uses walker Stairs (FIM): 5 #of Steps: 5 Stairs: Pattern: Step to Level of Assist: 5 Exercises Supine Ex: Ankle pumps, Quad Set, Heel Slides, Straight leg raise (AAROM) Supine Reps: 15 (2 sets) Seated Therapy Exercises: Long arc quads Seated Reps: 15 (2 sets AAROM right LE) Assessment Patient is progressing with treatment plan and will dismiss to home with home health intervention on this date. Patient has difficulty activating right quad musculature due to pain. PT Short Term Goals Short Term Goals Time Frame: March 26, 2018 Transfers (B,C,W/C) (FIM): 6 Gait (FIM): 6 Gait Distance Comment: 300' Gait Assistive Device: FWW PT Plan Treatment/Plan Treatment Plan: Discontinue PT Treatment Plan: Education, Functional Activity Deanna, Functional Strength, Gait , Safety, Therapeutic Exercise, Transfers Treatment Duration: March 26, 2018 Frequency: 11 times per week Estimated Hrs Per Day: .25 hour per day (15-30') Patient and/or Family Agrees t: Yes Time/GCodes Time In: 840 Time Out: 905 Total Billed Treatment Time: 25 Total Billed Treatment 1 visit EX x 2 25 min VINCE RODAS PT March 20, 2018 09:32
== END 2018-03-20 10:15 | disposition home health service (06) | DRG 470 ==
LOC: 4TH 06:00 → SURG 06:01 → 4TH 11:16
PROVIDERS: ADMIT Orthopaedic Surgery; ATTEND Orthopaedic Surgery
PROC: 0SRC0J9 Replacement of Right Knee Joint with Synthetic Substitute, Cemented, Open Approach (ICD-10-PCS; principal; 2018-03-18 07:50)
DX: M17.11 Unilateral primary osteoarthritis, right knee (principal); I10 Essential (primary) hypertension; K21.9 Gastro-esophageal reflux disease without esophagitis; J44.9 Chronic obstructive pulmonary disease, unspecified; F17.210 Nicotine dependence, cigarettes, uncomplicated; E78.00 Pure hypercholesterolemia, unspecified; E66.9 Obesity, unspecified; Z68.34 Body mass index [BMI] 34.0-34.9, adult; F32.9 Major depressive disorder, single episode, unspecified
CPT/HCPCS: 36415; 73560; 80048; 85027; 86850; 86900; 86901; 94664

== ENCOUNTER 2018-04-07 14:26 | Outpatient (RCR) | payer MEDICARE ==
[~2018-04-07 14:26] MED LIST changes: +ASPI325T32 PO; +HYDR-3820 PO; +PRAV40TA2 PO; +SENN-20 PO
== END 2018-04-16 09:07 | disposition home or self-care (01) ==
PROVIDERS: ATTEND Nurse Practitioner Family
DX: Z47.1 Aftercare following joint replacement surgery (principal); Z96.651 Presence of right artificial knee joint